=== PATIENT | female | born 2000 | race Caucasian/White ===

== ENCOUNTER 2022-04-05 17:33 | Emergency (ER) | payer SELFPAY ==
[~2022-04-05 17:33] MED LIST: BACTRIM DS TAB1 EACH PO; PYRIDIUM100 MG PO; ZOFRAN8 MG PO
[2022-04-05 19:16] LABS: BILIRUBIN NEGATIVE (NEGATIVE); BLOOD NEGATIVE Ery/uL (NEGATIVE); CLARITY CLEAR (CLEAR); COLOR YELLOW (YELLOW); GLUCOSE (U) NORMAL (NORMAL); LEUKOCYTES TRACE Leu/uL (NEGATIVE); NITRITE NEGATIVE (NEGATIVE); PROTEIN NEGATIVE (NEGATIVE); SPECIFIC GRAVITY <=1.005 (1.001-1.030); UROBILINOGEN 0.2 mg/dL (0.2-1.0)
[2022-04-05 19:17] LABS: AMPHETAMINES NEGATIVE (NEGATIVE); BARBITURATES NEGATIVE (NEGATIVE); ECSTASY (MDMA) NEGATIVE (NEGATIVE); MARIJUANA (THC) NEGATIVE (NEGATIVE); METHADONE NEGATIVE (NEGATIVE); OPIATES NEGATIVE (NEGATIVE); OXYCODONE NEGATIVE (NEGATIVE)
[2022-04-05 19:18] LABS: BASOPHIL 0.4 % (0-2); EOSINOPHIL 0.1 % (0-5); HCT 41.1 % (37.0-47.0); HGB 13.9 g/dl (12.5-16.0); LYMPHOCYTE 5.2 % (15-48); MCH 32.6 pg (25.0-31.0); MCHC 33.8 g/dL (32.0-36.0); MCV 96.3 fL (78.0-100.0); MONOCYTE 7.6 % (0-12); MPV 10.3 fL (6.0-9.5); NEUTROPHIL 86.3 % (41-80); NRBC 0; PLT 284 K/uL (150-400); RBC 4.27 M/uL (4.20-5.40); RDW 12.4 % (11.5-14.0); WBC 11.2 K/uL (4.0-10.5)
[2022-04-05 19:22] LABS: AMORPHOUS URATES CRYSTALS TRACE; BACTERIA 1+; URINARY RBC RARE
[2022-04-05 19:36] LABS: ALBUMIN 4.2 g/dL (3.4-5.0); BILIRUBIN - TOTAL 0.5 mg/dL (0.2-1.0); CREATININE 0.83 mg/dL (0.51-0.95); GLOBULIN (CALCULATION) 4.1 g/dL; POTASSIUM 4.4 mmol/L (3.5-5.1); TOTAL PROTEIN 8.3 g/dL (6.4-8.2)
[2022-04-05 19:45] LABS: LACTIC ACID 2.4 mmol/L (0.4-1.9)
[2022-04-05 19:57] LABS: CORONAVIRUS 2019 SARS-COV-2 NEGATIVE (NEGATIVE); INFLUENZA A NAA NEGATIVE (NEGATIVE)
[2022-04-05 20:59] LABS: INR 1.13 (0.9-1.2); PROTHROMBIN TIME 13.9 SECONDS (11.8-13.4)
[2022-04-05] MEDS ORDERED: ONDANSETRON HCL4 MG PO (22:32)
[2022-04-05] MEDS ORDERED: BENTYL10 MG PO (22:32)
== END 2022-04-05 23:40 | disposition home or self-care (01) ==
LOC: FER 17:33
PROVIDERS: Emergency Medicine; Nurse Practitioner Family
DX: R10.32 Left lower quadrant pain (principal); R50.9 Fever, unspecified; R11.2 Nausea with vomiting, unspecified; F17.290 Nicotine dependence, other tobacco product, uncomplicated; Z20.822 Contact with and (suspected) exposure to COVID-19; Z28.310 Unvaccinated for COVID-19
CPT/HCPCS: 36415; 80053; 80305; 81001; 83605; 85025; 85610; 87040; 87088; J1885; J2405; J2543; J7030; Q9967; U0002